=== PATIENT | male | born 1990 | race Caucasian/White ===

== ENCOUNTER 2022-12-10 03:52 | Emergency (ER) | payer OTHER ==
[2022-12-10] MEDS ORDERED: Haloperidol Lactate 5 MG/ML VIAL ONE (04:16)
[2022-12-10] MEDS ORDERED: Ondansetron PF 4 MG/2 ML Vial ONE (04:30)
[2022-12-10] MEDS ORDERED: Promethazine HCl 25 MG/ML VIAL IVPB SCH (05:00)
== END 2022-12-10 06:31 | disposition home or self-care (01) ==
LOC: CSHERS 03:52
DX: R11.10 Vomiting, unspecified (principal); Z87.891 Personal history of nicotine dependence
CPT/HCPCS: 96361; 96365; 96375; J1630; J2405; J2550